=== PATIENT | female | born 1995 | race Caucasian/White ===

== ENCOUNTER 2016-05-22 03:28 | Emergency (ER) | payer OTHER ==
--- NOTE | 2016-05-22 03:49 | ERPHSYRPT ---
- History of Present Illness Time Seen by Provider: 05/22/16 03:33 Source: patient Exam Limitations: no limitations Physician History: FOR THE PAST 3 DAYS PT HAS HAD BILATERAL FLANK/LOWER ABDOMINAL PAIN, DYSURIA AND INCREASED URINARY FREQUENCY; FOR THE PAST 2 DAYS NAUSEA, VOMITING X4 WITHOUT BLOOD AND FEVER UP TO 101.8 DEGREES. LAST BM WAS 2 DAYS AGO AND PASTY [facility]. LMP ~ 2 WEEKS AGO. Allergies/Adverse Reactions: No Known Drug Allergies Allergy (Verified 01/01/16 10:34) Home Medications: Alprazolam 1 mg [Xanax 1 mg] 1 mg PO Q8HPRN PRN 11/17/15 [History] Oxycodone HCl/Acetaminophen [Percocet 10-325 mg Tablet] 1 each PO Q4-6HPRN PRN 01/01/16 [History] Cyclobenzaprine HCl [Flexeril] 10 mg PO TID 05/22/16 [History] Venlafaxine HCl ER 75 mg [Effexor XR 75 MG] 75 mg PO DAILY 05/22/16 [ History] Hx Tetanus, Diphtheria Vaccination/Date Given: Yes (up to date) Hx Influenza Vaccination/Date Given: No Hx Pneumococcal Vaccination/Date Given: No - Review of Systems Constitutional: Fever Cardiac: No Chest Pain Abdominal/Gastrointestinal: Abdominal Pain, Nausea, Vomiting, Other (BILATERAL FLANK PAIN) Genitourinary Symptoms: Dysuria, Frequency All Other Systems: Reviewed and Negative - Past Medical History Pertinent Past Medical History: Yes Neurological History: No Pertinent History ENT History: No Pertinent History Cardiac History: No Pertinent History Respiratory History: No Pertinent History Endocrine Medical History: No Pertinent History Musculoskeletal History: No Pertinent History GI Medical History: No Pertinent History History: Other (H/O pyelonephritis and right nephrolithiasis) Psycho-Social History: Anxiety Female Reproductive Disorders: No Pertinent History Other Medical History: chronic pain - Past Surgical History Past Surgical History: Yes Neuro Surgical History: No Pertinent History Cardiac: No Pertinent History Respiratory: No Pertinent History Gastrointestinal: No Pertinent History Genitourinary: No Pertinent History Musculoskeletal: Orthopedic Surgery Female Surgical History: Section Other Surgical History: LEFT WRIST SURGERY - Social History Smoking Status: Current every day smoker How long have you smoked: 6 Exposure to second hand smoke: Yes Drug Use: none Patient Lives Alone: No Significant Family History: heart disease - Female History Hx Now: No - Nursing Vital Signs Nursing Vital Signs: Initial Vital Signs Temperature 98.0 F Temperature Source Oral Pulse Rate 115 Respiratory Rate 20 Blood Pressure [Left Arm] 111/59 Pain Intensity 6 - Physical Exam General Appearance: alert Eye Exam: PERRL/EOMI Ears, Nose, Throat Exam: TMs normal, pharynx normal Neck Exam: normal inspection Respiratory Exam: lungs clear Cardiovascular Exam: tachycardia Gastrointestinal/Abdomen Exam: soft, normal bowel sounds Back Exam: normal range of motion Extremity Exam: normal inspection, No pedal edema Neurologic Exam: alert, cooperative Skin Exam: warm, dry SpO2 Interpretation: normal SpO2: 97 Oxygen Delivery: Room Air - Course Nursing assessment & vital signs reviewed: Yes Ordered Tests: Active Orders 24 hr Category Date Time Status AMYLASE Stat Lab 05/22/16 03:56 Completed CBC W DIFF Stat Lab 05/22/16 03:56 Completed CMP Stat Lab 05/22/16 03:56 Completed CULTURE,URINE Stat Lab 05/22/16 04:00 Received HCG QUALITATIVE,SERUM Stat Lab 05/22/16 03:56 Completed LIPASE Stat Lab 05/22/16 03:56 Completed MAGNESIUM Stat Lab 05/22/16 03:56 Completed UA W/ MICROSCOPIC Stat Lab 05/22/16 03:56 Completed Medication Summary Generic Name Dose Route Start Last Admin Trade Name Freq PRN Reason Stop Dose Admin Hydromorphone HCl 1 mg 05/22/16 05:43 Dilaudid 1 Mg/Ml Injection IV 05/22/16 05:44 STAT ONE Ceftriaxone Sodium/Dextrose 50 mls @ 100 mls/hr 05/22/16 05:27 05/22/16 05:34 Rocephin 1 Gm-D5w 50 Ml Bag IV 05/22/16 05:56 100 mls/hr STAT ONE Administration Magnesium Oxide 400 mg 05/22/16 10:00 05/22/16 05:35 Mag-Ox 400 PO 06/21/16 09:59 400 mg BID ISMAEL Administration Potassium Chloride 40 meq 05/22/16 10:00 05/22/16 05:35 Potassium Chl 40 Meq/30 Ml Oral Solution PO 06/21/16 09:59 40 meq DAILY ISMAEL Administration Discontinued Medications Generic Name Dose Route Start Last Admin Trade Name Freq PRN Reason Stop Dose Admin Sodium Chloride 1,000 mls @ 999 mls/hr 05/22/16 03:51 05/22/16 03:57 Sodium Chloride 0.9% 1000 Ml IV 05/22/16 04:51 999 mls/hr .Q1H1M STA Administration Sodium Chloride Confirm 05/22/16 03:57 Sodium Chloride 0.9% 1000 Ml Administered 05/22/16 03:58 Dose 1,000 mls @ ud .ROUTE .STK-MED ONE Ceftriaxone Sodium/Dextrose Confirm 05/22/16 05:31 Rocephin 1 Gm-D5w 50 Ml Bag Administered 05/22/16 05:32 Dose 50 mls @ ud IV .STK-MED ONE Ketorolac Tromethamine 30 mg 05/22/16 04:32 05/22/16 04:47 Toradol 30 Mg Injection IV 05/22/16 04:33 30 mg STAT ONE Administration Ketorolac Tromethamine Confirm 05/22/16 04:44 Toradol 30 Mg Injection Administered 05/22/16 04:45 Dose 30 mg .ROUTE .STK-MED ONE Magnesium Oxide Confirm 05/22/16 05:31 Mag-Ox 400 Administered 05/22/16 05:32 Dose 400 mg .ROUTE .STK-MED ONE Ondansetron HCl 4 mg 05/22/16 04:33 05/22/16 04:47 Zofran Odt 4 Mg PO 05/22/16 04:34 4 mg STAT ONE Administration Ondansetron HCl Confirm 05/22/16 04:44 Zofran Odt 4 Mg Administered 05/22/16 04:45 Dose 4 mg .ROUTE .STK-MED ONE Ondansetron HCl Confirm 05/22/16 04:51 Zofran Odt 4 Mg Administered 05/22/16 04:52 Dose 4 mg .ROUTE .STK-MED ONE Potassium Chloride Confirm 05/22/16 05:32 Potassium Chl 40 Meq/30 Ml Oral Solution Administered 05/22/16 05:33 Dose 40 meq .ROUTE .STK-MED ONE Lab/Rad Data: Laboratory Result Diagrams 05/22/16 03:56 05/22/16 03:56 Laboratory Results 05/22/16 05/22/16 05/22/16 Range/Units 03:56 03:56 03:56 WBC 14.1 H (4.0-10.5) K/mm3 RBC 4.51 (4.1-5.4) M/mm3 Hgb 11.9 L (12.0-16.0) gm/dl Hct 37.1 (35-47) % MCV 82.3 (78-100) fl MCH 26.3 (26-32) pg MCHC 32.1 (32-36) g/dl RDW 14.5 H (11.5-14.0) % Plt Count 243 (150-450) K/mm3 MPV 10.6 H (6-9.5) fl Gran % 75.4 H (36.0-66.0) % Lymphocytes % 17.5 L (24.0-44.0) % Monocytes % 6.5 (0.0-12.0) % Eosinophils % 0.4 (0.00-5.0) % Basophils % 0.2 (0.0-0.4) % Basophils # 0.03 (0-0.4) Sodium 132 L (136-145) mEq/L Potassium 3.2 L (3.5-5.1) mEq/L Chloride 97 L (98-107) mEq/L Carbon Dioxide 22.3 (21-32) mEq/L Anion Gap 16.1 H (5-15) MEQ/L BUN 12 (9-20) mg/dL Creatinine 1.03 (0.55-1.30) mg/dl Estimated GFR > 60 ML/MIN Glucose 92 (70-110) MG/DL Calcium 8.7 (8.5-10.1) mg/dL Magnesium 1.5 L (1.8-2.4) mg/dL Total Bilirubin 0.4 (0.2-1.0) mg/dL AST 13 L (15-37) U/L ALT 13 (12-78) U/L Alkaline Phosphatase 105 (46-116) U/L Serum Total Protein 8.3 H (6.4-8.2) gm/dL Albumin 3.9 (3.4-5.0) g/dL Amylase 43 (25-115) U/L Lipase 65 L (73-393) U/L Serum , Qual NEGATIVE (Negative) Ur Collection Type Urine Color (YELLOW) Urine Appearance (CLEAR) Urine pH (5-6) Ur Specific [place] (1.005-1.025) Urine Protein (Negative) Urine Glucose (UA) (NEGATIVE) mg/dL Urine Ketones (NEGATIVE) Urine Nitrite (NEGATIVE) Urine Bilirubin (NEGATIVE) Urine Urobilinogen (0-1) mg/dL Urine WBC (Auto) (NEGATIVE) Urine RBC (Auto) (0-5) Ash/ul Urine Microscopic RBC (0-2) /HPF Urine Microscopic WBC (0-5) /HPF Ur Epithelial Cells (FEW) /HPF Urine Bacteria (NEGATIVE) /HPF Urine Mucus (NEGATIVE) /HPF Urine Yeast (NEGATIVE) /HPF Specimen Received 05/22/16 Range/Units 03:56 WBC (4.0-10.5) K/mm3 RBC (4.1-5.4) M/mm3 Hgb (12.0-16.0) gm/dl Hct (35-47) % MCV (78-100) fl MCH (26-32) pg MCHC (32-36) g/dl RDW (11.5-14.0) % Plt Count (150-450) K/mm3 MPV (6-9.5) fl Gran % (36.0-66.0) % Lymphocytes % (24.0-44.0) % Monocytes % (0.0-12.0) % Eosinophils % (0.00-5.0) % Basophils % (0.0-0.4) % Basophils # (0-0.4) Sodium (136-145) mEq/L Potassium (3.5-5.1) mEq/L Chloride (98-107) mEq/L Carbon Dioxide (21-32) mEq/L Anion Gap (5-15) MEQ/L BUN (9-20) mg/dL Creatinine (0.55-1.30) mg/dl Estimated GFR ML/MIN Glucose (70-110) MG/DL Calcium (8.5-10.1) mg/dL Magnesium (1.8-2.4) mg/dL Total Bilirubin (0.2-1.0) mg/dL AST (15-37) U/L ALT (12-78) U/L Alkaline Phosphatase (46-116) U/L Serum Total Protein (6.4-8.2) gm/dL Albumin (3.4-5.0) g/dL Amylase (25-115) U/L Lipase (73-393) U/L Serum , Qual (Negative) Ur Collection Type CLEAN CATCH Urine Color YELLOW (YELLOW) Urine Appearance SLIGHTLY CLOUDY (CLEAR) Urine pH 5.5 (5-6) Ur Specific [place] 1.025 (1.005-1.025) Urine Protein 30 (Negative) Urine Glucose (UA) NEGATIVE (NEGATIVE) mg/dL Urine Ketones NEGATIVE (NEGATIVE) Urine Nitrite NEGATIVE (NEGATIVE) Urine Bilirubin NEGATIVE (NEGATIVE) Urine Urobilinogen 1 (0-1) mg/dL Urine WBC (Auto) NEGATIVE (NEGATIVE) Urine RBC (Auto) MODERATE (0-5) Ash/ul Urine Microscopic RBC 10-15 (0-2) /HPF Urine Microscopic WBC 2-5 (0-5) /HPF Ur Epithelial Cells MODERATE (FEW) /HPF Urine Bacteria MODERATE (NEGATIVE) /HPF Urine Mucus MANY (NEGATIVE) /HPF Urine Yeast MANY (NEGATIVE) /HPF Specimen Received 05/22/16 0400 - Departure Time of Disposition: 05:48 Departure Disposition: Home Clinical Impression: UTI, VOMITING, HYPOKALEMIA, HYPOMAGNESEMIA Condition: Fair Critical Care Time: No Instructions: Urinary Tract Infection (UTI), Vomiting -- Adult Additional Instructions: FOLLOW UP WITH PRIVATE DOCTOR TOMORROW. Prescriptions: Phenazopyridine HCl 200 mg [Pyridium 200 mg] 200 mg PO TID #7 tablet Sulfamethoxazole/Trimethoprim [Bactrim Ds Tablet] 1 each PO BID #20 tablet
[2016-05-22] MEDS ORDERED: Sodium Chloride 0.9% 1000 ML 1,000 ML IV STA (03:51)
[2016-05-22] MEDS ORDERED: Sodium Chloride 0.9% 1000 ML 1,000 ML ONE (03:57)
[2016-05-22 04:02] LABS: BASOPHIL % 0.2 % (0.0-0.4); Eosinophil % 0.4 % (0.00-5.0); Granulocytes % 75.4 % (36.0-66.0); Lymphocytes % 17.5 % (24.0-44.0); Mean Cell Volume 82.3 fl (78-100); Mean Platelet Volume 10.6 fl (6-9.5); Monocytes % 6.5 % (0.0-12.0); Platelet Count 243 K/mm3 (150-450); Red Blood Count 4.51 M/mm3 (4.1-5.4); Red Cell Distribution Width 14.5 % (11.5-14.0); White Blood Count 14.1 K/mm3 (4.0-10.5)
[2016-05-22 04:03] LABS: Mean Corpuscular Hemoglobin 26.3 pg (26-32)
[2016-05-22 04:15] LABS: Collection Type CLEAN CATCH
[2016-05-22 04:16] LABS: Bacteria MODERATE /HPF (NEGATIVE); COMPLETE URINE MICROSCOPIC? YES; Epithelial Cells MODERATE /HPF (FEW); Mucus MANY /HPF (NEGATIVE); Ph 5.5 (5-6); Yeast MANY /HPF (NEGATIVE)
[2016-05-22 04:27] LABS: ALBUMIN 3.9 g/dL (3.4-5.0); ALKALINE PHOSPHATASE 105 U/L (46-116); ANION GAP 16.1 MEQ/L (5-15); BILIRUBIN,TOTAL 0.4 mg/dL (0.2-1.0); BLOOD UREA NITROGEN 12 mg/dL (9-20); CHLORIDE 97 mEq/L (98-107); Carbon Dioxide 22.3 mEq/L (21-32); Glucose 92 MG/DL (70-110); LIPASE 65 U/L (73-393); MAGNESIUM 1.5 mg/dL (1.8-2.4); Potassium 3.2 mEq/L (3.5-5.1); SGOT/AST 13 U/L (15-37); SGPT/ALT 13 U/L (12-78); SODIUM 132 mEq/L (136-145); Total Protein 8.3 gm/dL (6.4-8.2)
[2016-05-22] MEDS ORDERED: TORAdol 30 mg Injection IV ONE (04:32)
[2016-05-22] MEDS ORDERED: ZOFRAN ODT 4 MG PO ONE (04:33)
[2016-05-22] MEDS ORDERED: ZOFRAN ODT 4 MG ONE ×2 (04:44→04:51)
[2016-05-22] MEDS ORDERED: TORAdol 30 mg Injection ONE (04:44)
[2016-05-22] MEDS ORDERED: ROCEPHIN 1 Gm-D5w 50 ml Bag** 50 ML IV ONE ×2 (05:27→05:31)
[2016-05-22] MEDS ORDERED: MAG-OX 400 ONE (05:31)
[2016-05-22] MEDS ORDERED: POTASSIUM CHL 40 MEQ/30 ML ORAL SOLUTION ONE (05:32)
[2016-05-22] MEDS ORDERED: Hydromorphone 1 mg/ml Ampule IV ONE (05:43)
[2016-05-22] MEDS ORDERED: Phenergan 25 MG INJ IV ONE (05:43)
[2016-05-22] MEDS ORDERED: Hydromorphone 1 mg/ml Ampule ONE (05:49)
[2016-05-22] MEDS ORDERED: Phenergan 25 MG INJ ONE (05:49)
[2016-05-22 06:28] VITALS: BP 116/64; PULSE 102; O2SAT 99
[2016-05-22] MEDS ORDERED: POTASSIUM CHL 40 MEQ/30 ML ORAL SOLUTION PO SCH (10:00)
[2016-05-22] MEDS ORDERED: MAG-OX 400 PO SCH (10:00)
== END 2016-05-22 06:15 | disposition home or self-care (01) ==
LOC: ED 03:28
DX: N39.0 Urinary tract infection, site not specified (principal); R11.2 Nausea with vomiting, unspecified; E87.6 Hypokalemia; E83.42 Hypomagnesemia; R10.30 Lower abdominal pain, unspecified; R10.9 Unspecified abdominal pain
CPT/HCPCS: 36000; 36415; 80053; 81000; 82150; 83690; 83735; 84703; 85025; 87086; 96360; 96365; 96368; 96374; 96375; 99283; J0696; J1170; J1885; J2550; Q0162

== ENCOUNTER 2016-07-23 18:39 | Emergency (ER) | payer OTHER ==
[2016-07-23] MEDS ORDERED: Phenergan 25 MG INJ IV ONE (19:56)
[2016-07-23] MEDS ORDERED: Sodium Chloride 0.9% 1000 ML 1,000 ML IV STA (19:56)
[2016-07-23] MEDS ORDERED: Hydromorphone 1 mg/ml Ampule IV ONE (19:56)
--- NOTE | 2016-07-23 20:03 | ERPHSYRPT ---
- History of Present Illness Time Seen by Provider: 07/23/16 19:50 Historian: patient Exam Limitations: no limitations Patient Subjective Stated Complaint: RLQ abd pain x 2-3 days - radiating into the back - fever - dysuria - nausea Triage Nursing Assessment: ambulatory to treatment area - steady gait - moves all extremities with equal strength. alert/oriented - hystrionic affect/ tearful. resps easy - shallow per pain. skin flushed/hot/dry - no rash/injury Physician History: FOR THE PAST 3 DAYS PT HAS HAD RIGHT SIDED ABDOMINAL PAIN AND RIGHT LOWER BACK PAIN WITH DYSURIA AND URINARY URGENCY; FOR THE PAST 2 DAYS FEVER UP TO 102 DEGREES; TODAY NAUSEA AND VOMITING X4. LMP WAS LAST WEEK & WNL. Allergies/Adverse Reactions: No Known Drug Allergies Allergy (Verified 01/01/16 10:34) Home Medications: Alprazolam 1 mg [Xanax 1 mg] 1 mg PO Q8HPRN PRN 11/17/15 [History] Oxycodone HCl/Acetaminophen [Percocet 10-325 mg Tablet] 1 each PO Q4-6HPRN PRN 01/01/16 [History] Cyclobenzaprine HCl [Flexeril] 10 mg PO TID 05/22/16 [History] Venlafaxine HCl ER 75 mg [Effexor XR 75 MG] 75 mg PO DAILY 05/22/16 [ History] Hx Tetanus, Diphtheria Vaccination/Date Given: Yes Hx Influenza Vaccination/Date Given: No Hx Pneumococcal Vaccination/Date Given: No Immunizations Up to Date: Yes - Review of Systems Constitutional: Fever Respiratory: No Dyspnea Cardiac: No Chest Pain Abdominal/Gastrointestinal: Abdominal Pain, Nausea, Vomiting Genitourinary Symptoms: Dysuria, Urgency Musculoskeletal: Back Pain (RIGHT LOWER BACK PAIN) All Other Systems: Reviewed and Negative - Past Medical History Pertinent Past Medical History: Yes Neurological History: No Pertinent History ENT History: No Pertinent History Cardiac History: No Pertinent History Respiratory History: No Pertinent History Endocrine Medical History: No Pertinent History Musculoskeletal History: No Pertinent History GI Medical History: No Pertinent History History: Other Psycho-Social History: Anxiety Female Reproductive Disorders: No Pertinent History Other Medical History: chronic pain - Past Surgical History Past Surgical History: Yes Neuro Surgical History: No Pertinent History Cardiac: No Pertinent History Respiratory: No Pertinent History Gastrointestinal: No Pertinent History Genitourinary: No Pertinent History Musculoskeletal: Orthopedic Surgery Female Surgical History: Section Other Surgical History: LEFT WRIST SURGERY - Social History Smoking Status: Current every day smoker How long have you smoked: 6 Exposure to second hand smoke: No Drug Use: none Patient Lives Alone: No Significant Family History: heart disease - Female History Hx Last Menstrual Period: 1 week Hx Now: No - Nursing Vital Signs Nursing Vital Signs: Initial Vital Signs Temperature 98.6 F Temperature Source Oral Pulse Rate 88 Respiratory Rate 16 Blood Pressure [Right Arm] 100/49 Pain Intensity 0 - Physical Exam General Appearance: mild distress, alert Eye Exam: PERRL/EOMI Ears, Nose, Throat Exam: pharynx normal, moist mucous membranes Neck Exam: normal inspection Respiratory Exam: lungs clear Cardiovascular Exam: normal heart sounds Gastrointestinal/Abdomen Exam: soft, normal bowel sounds, tenderness (MILD RIGHT SIDED TENDERNESS AND SUPRAPUBIC TENDERNESS), No guarding Back Exam: normal range of motion Extremity Exam: normal inspection, No pedal edema Neurologic Exam: alert, cooperative Skin Exam: warm, dry SpO2 Interpretation: normal SpO2: 98 Oxygen Delivery: Room Air - Course Nursing assessment & vital signs reviewed: Yes - CT Exams Abdomen/Pelvis CT Interpretation: Discussed w/radiologist (NORMAL APPY; MILD SCATTERED FECAL STASIS WITHOUT OBSTRUCTION; NEW NON-OBSTRUCTING LEFT RENAL PUNCTATE CALCULI; NEW 3 CM LEFT OVARIAN CYST; REMAINING ABD/PEL NEGATIVE.) Ordered Tests: Active Orders 24 hr Category Date Time Status IV Insertion STAT Care 07/23/16 19:56 Active ABDOMEN AND PELVIS W/0 CONTRAS [CT] Stat Exams 07/23/16 19:57 Taken AMYLASE Stat Lab 07/23/16 20:18 Completed CBC W DIFF Stat Lab 07/23/16 20:18 Completed CMP Stat Lab 07/23/16 20:18 Completed HCG QUALITATIVE,SERUM Stat Lab 07/23/16 20:18 Completed LIPASE Stat Lab 07/23/16 20:18 Completed MAGNESIUM Stat Lab 07/23/16 20:18 Completed UA Stat Lab 07/23/16 20:15 Completed Medication Summary Discontinued Medications Generic Name Dose Route Start Last Admin Trade Name Freq PRN Reason Stop Dose Admin Hydromorphone HCl 1 mg 07/23/16 19:56 07/23/16 20:25 Hydromorphone 1 Mg/Ml Ampule IV 07/23/16 19:57 1 mg STAT ONE Administration Hydromorphone HCl Confirm 07/23/16 20:23 Hydromorphone 1 Mg/Ml Ampule Administered 07/23/16 20:24 Dose 1 mg .ROUTE .STK-MED ONE Sodium Chloride 1,000 mls @ 999 mls/hr 07/23/16 19:56 07/23/16 20:24 Sodium Chloride 0.9% 1000 Ml IV 07/23/16 20:56 999 mls/hr .Q1H1M STA Administration Sodium Chloride Confirm 07/23/16 20:23 Sodium Chloride 0.9% 1000 Ml Administered 07/23/16 20:24 Dose 1,000 mls @ ud .ROUTE .STK-MED ONE Promethazine HCl 12.5 mg 07/23/16 19:56 07/23/16 20:24 Phenergan 25 Mg Inj IV 07/23/16 19:57 12.5 mg STAT ONE Administration Promethazine HCl Confirm 07/23/16 20:22 Phenergan 25 Mg Inj Administered 07/23/16 20:23 Dose 25 mg .ROUTE .STK-MED ONE Lab/Rad Data: Laboratory Result Diagrams 07/23/16 20:18 07/23/16 20:18 Laboratory Results 07/23/16 07/23/16 07/23/16 Range/Units 20:18 20:18 20:18 WBC 10.4 (4.0-10.5) K/mm3 RBC 4.62 (4.1-5.4) M/mm3 Hgb 12.4 (12.0-16.0) gm/dl Hct 39.5 (35-47) % MCV 85.5 (78-100) fl MCH 26.8 (26-32) pg MCHC 31.4 L (32-36) g/dl RDW 14.8 H (11.5-14.0) % Plt Count 336 (150-450) K/mm3 MPV 9.4 (6-9.5) fl Gran % 52.6 (36.0-66.0) % Lymphocytes % 35.6 (24.0-44.0) % Monocytes % 6.2 (0.0-12.0) % Eosinophils % 5.0 (0.00-5.0) % Basophils % 0.6 (0.0-0.4) % Basophils # 0.06 (0-0.4) Sodium 144 (136-145) mEq/L Potassium 3.6 (3.5-5.1) mEq/L Chloride 104 (98-107) mEq/L Carbon Dioxide 28.3 (21-32) mEq/L Anion Gap 15.2 H (5-15) MEQ/L BUN 7 L (9-20) mg/dL Creatinine 0.91 (0.55-1.30) mg/dl Estimated GFR > 60 ML/MIN Glucose 80 (70-110) MG/DL Calcium 9.1 (8.5-10.1) mg/dL Magnesium 1.8 (1.8-2.4) mg/dL Total Bilirubin 0.3 (0.2-1.0) mg/dL AST 18 (15-37) U/L ALT 17 (12-78) U/L Alkaline Phosphatase 96 (46-116) U/L Serum Total Protein 8.2 (6.4-8.2) gm/dL Albumin 4.0 (3.4-5.0) g/dL Amylase 52 (25-115) U/L Lipase 104 (73-393) U/L Serum , Qual NEGATIVE (Negative) Ur Collection Type Urine Color (YELLOW) Urine Appearance (CLEAR) Urine pH (5-6) Ur Specific [place] (1.005-1.025) Urine Protein (Negative) Urine Glucose (UA) (NEGATIVE) mg/dL Urine Ketones (NEGATIVE) Urine Nitrite (NEGATIVE) Urine Bilirubin (NEGATIVE) Urine Urobilinogen (0-1) mg/dL Urine WBC (Auto) (NEGATIVE) Urine RBC (Auto) (0-5) Ash/ul Specimen Received 07/23/16 Range/Units 20:15 WBC (4.0-10.5) K/mm3 RBC (4.1-5.4) M/mm3 Hgb (12.0-16.0) gm/dl Hct (35-47) % MCV (78-100) fl MCH (26-32) pg MCHC (32-36) g/dl RDW (11.5-14.0) % Plt Count (150-450) K/mm3 MPV (6-9.5) fl Gran % (36.0-66.0) % Lymphocytes % (24.0-44.0) % Monocytes % (0.0-12.0) % Eosinophils % (0.00-5.0) % Basophils % (0.0-0.4) % Basophils # (0-0.4) Sodium (136-145) mEq/L Potassium (3.5-5.1) mEq/L Chloride (98-107) mEq/L Carbon Dioxide (21-32) mEq/L Anion Gap (5-15) MEQ/L BUN (9-20) mg/dL Creatinine (0.55-1.30) mg/dl Estimated GFR ML/MIN Glucose (70-110) MG/DL Calcium (8.5-10.1) mg/dL Magnesium (1.8-2.4) mg/dL Total Bilirubin (0.2-1.0) mg/dL AST (15-37) U/L ALT (12-78) U/L Alkaline Phosphatase (46-116) U/L Serum Total Protein (6.4-8.2) gm/dL Albumin (3.4-5.0) g/dL Amylase (25-115) U/L Lipase (73-393) U/L Serum , Qual (Negative) Ur Collection Type CLEAN CATCH Urine Color YELLOW (YELLOW) Urine Appearance CLEAR (CLEAR) Urine pH 6.0 (5-6) Ur Specific [place] 1.015 (1.005-1.025) Urine Protein NEGATIVE (Negative) Urine Glucose (UA) NEGATIVE (NEGATIVE) mg/dL Urine Ketones NEGATIVE (NEGATIVE) Urine Nitrite NEGATIVE (NEGATIVE) Urine Bilirubin NEGATIVE (NEGATIVE) Urine Urobilinogen 0.2 (0-1) mg/dL Urine WBC (Auto) NEGATIVE (NEGATIVE) Urine RBC (Auto) NEGATIVE (0-5) Ash/ul Specimen Received 07/23/16:2009 - Departure Time of Disposition: 21:55 Departure Disposition: Home Clinical Impression: ABDOMINAL PAIN Condition: Fair Critical Care Time: No Instructions: Abdominal Pain-Adult Additional Instructions: FOLLOW UP WITH PRIVATE DOCTOR TOMORROW.
[2016-07-23] MEDS ORDERED: Phenergan 25 MG INJ ONE (20:22)
[2016-07-23] MEDS ORDERED: Sodium Chloride 0.9% 1000 ML 1,000 ML ONE (20:23)
[2016-07-23] MEDS ORDERED: Hydromorphone 1 mg/ml Ampule ONE (20:23)
[2016-07-23 20:24] LABS: BASOPHIL % 0.6 % (0.0-0.4); Granulocytes % 52.6 % (36.0-66.0); Lymphocytes % 35.6 % (24.0-44.0); Mean Cell Volume 85.5 fl (78-100); Mean Corpuscular Hemoglobin 26.8 pg (26-32); Mean Platelet Volume 9.4 fl (6-9.5); Monocytes % 6.2 % (0.0-12.0); Platelet Count 336 K/mm3 (150-450); Red Blood Count 4.62 M/mm3 (4.1-5.4); Red Cell Distribution Width 14.8 % (11.5-14.0); White Blood Count 10.4 K/mm3 (4.0-10.5)
[2016-07-23 20:30] LABS: COMPLETE URINE MICROSCOPIC? NO; Collection Type CLEAN CATCH
[2016-07-23 20:47] LABS: ALKALINE PHOSPHATASE 96 U/L (46-116); ANION GAP 15.2 MEQ/L (5-15); BILIRUBIN,TOTAL 0.3 mg/dL (0.2-1.0); BLOOD UREA NITROGEN 7 mg/dL (9-20); CHLORIDE 104 mEq/L (98-107); Carbon Dioxide 28.3 mEq/L (21-32); Glucose 80 MG/DL (70-110); LIPASE 104 U/L (73-393); MAGNESIUM 1.8 mg/dL (1.8-2.4); Potassium 3.6 mEq/L (3.5-5.1); SGOT/AST 18 U/L (15-37); SGPT/ALT 17 U/L (12-78); SODIUM 144 mEq/L (136-145); Total Protein 8.2 gm/dL (6.4-8.2)
[2016-07-23] MEDS ORDERED: TORAdol 30 mg Injection IV ONE (21:55)
[2016-07-23] MEDS ORDERED: TORAdol 30 mg Injection ONE (21:58)
[2016-07-23 22:27] VITALS: BP 130/86; PULSE 70; O2SAT 99
--- NOTE | 2016-07-24 09:03 | XRAY ---
Indication: Right lower quadrant pain for 3 days. Multiple contiguous images obtained through the abdomen and pelvis without contrast as ordered. Comparison: January 01, 2016. Lung bases demonstrates minimal bibasilar dependent atelectasis. No infiltrate, consolidation, or effusion. Heart is not enlarged. Noncontrasted stomach and bowel loops appear nonobstructed. There is mild diffuse scattered colonic fecal debris throughout. Normal appendix. New nonobstructing left renal punctate calculus and new 3 cm left ovary cyst. No free fluid/air. Uterus is incidentally prominent with thickened endometrial stripe presumably related to menses. Remaining liver, gallbladder, pancreas, spleen, adrenal glands, kidneys, ureters, bladder, uterus, and aorta appear unremarkable for noncontrast exam. Osseous structures intact. Impression: 1. Fecal stasis without obstruction. 2. New nonobstructing punctate left renal calculus. 3. New 3 cm left ovary cyst. Also prominent uterus with endometrial thickening presumes related to menses. Correlate clinically. Pelvic sonogram may yield further information if there remains further clinical concern. CT DI 17.79
== END 2016-07-23 22:27 | disposition home or self-care (01) ==
LOC: ED 18:39
DX: R10.9 Unspecified abdominal pain (principal); M54.5 Low back pain; R50.9 Fever, unspecified; R30.0 Dysuria; R11.2 Nausea with vomiting, unspecified
CPT/HCPCS: 36000; 36415; 74176; 80053; 81002; 82150; 83690; 83735; 84703; 85025; 96360; 96374; 96375; 99284; J1170; J1885; J2550

== ENCOUNTER 2017-01-30 19:35 | Emergency (ER) | payer OTHER ==
[2017-01-30] MEDS ORDERED: Sodium Chloride 0.9% 1000 ML 1,000 ML IV STA (20:10)
[2017-01-30] MEDS ORDERED: TORAdol 30 mg Injection IV ONE (20:10)
[2017-01-30] MEDS ORDERED: Zofran 4 MG/2 ML VIAL IV ONE (20:10)
--- NOTE | 2017-01-30 20:10 | ERPHSYRPT ---
- History of Present Illness Time Seen by Provider: 01/30/17 20:10 Historian: patient Exam Limitations: no limitations Patient Subjective Stated Complaint: Pt states "For the past few days I have been running a fever and had horrible right side pain. I have had this several times and it is always a kidney infection and it is always on the right, I do not know what to do." Triage Nursing Assessment: Pt alert and oriented X 3, skin pwd. Pt ambulates with an upright steady gait, able to speak in full clear sentencs. pt in no apparent respiratory distress. Pt is holding her right side. Physician History: The patient is a 21-year-old female with her boyfriend complaining of right flank and bladder pain for 4 days. She had a fever of 102 last night. The pain has increased today. She finds it difficult to urinate because of pain with urination. She has been vomiting today. Her past medical history is significant for kidney stones and pyelonephritis. Timing/Duration: day(s) (4) Activities at Onset: none Quality: aching Abdominal Pain Onset Location: suprapubic, flank ( he) Pain Radiation: no radiation Severity of Pain-Max: moderate Severity of Pain-Current: moderate Modifying Factors: Improves With: nothing Associated Symptoms: nausea, vomiting Previous symptoms: same symptoms as today Allergies/Adverse Reactions: No Known Drug Allergies Allergy (Verified 01/01/16 10:34) Hx Tetanus, Diphtheria Vaccination/Date Given: No Hx Influenza Vaccination/Date Given: No Hx Pneumococcal Vaccination/Date Given: No Immunizations Up to Date: Yes - Review of Systems Constitutional: Fever Eyes: No Symptoms Ears, Nose, & Throat: No Symptoms Respiratory: No Cough, No Dyspnea Cardiac: No Chest Pain, No Edema, No Syncope Abdominal/Gastrointestinal: Nausea, Vomiting Genitourinary Symptoms: Dysuria, Flank Pain Musculoskeletal: No Back Pain, No Neck Pain Skin: No Rash Neurological: No Dizziness, No Focal Weakness, No Sensory Changes Psychological: No Symptoms Endocrine: No Symptoms Hematologic/Lymphatic: No Symptoms Immunological/Allergic: No Symptoms All Other Systems: Reviewed and Negative - Past Medical History Pertinent Past Medical History: Yes Neurological History: No Pertinent History ENT History: No Pertinent History Cardiac History: No Pertinent History Respiratory History: No Pertinent History Endocrine Medical History: No Pertinent History Musculoskeletal History: No Pertinent History GI Medical History: No Pertinent History History: Other Psycho-Social History: Anxiety Female Reproductive Disorders: No Pertinent History Other Medical History: chronic pain - Past Surgical History Past Surgical History: Yes Neuro Surgical History: No Pertinent History Cardiac: No Pertinent History Respiratory: No Pertinent History Gastrointestinal: No Pertinent History Genitourinary: No Pertinent History Musculoskeletal: Orthopedic Surgery Female Surgical History: Section Other Surgical History: LEFT WRIST SURGERY - Social History Smoking Status: Current every day smoker How long have you smoked: 5 years Exposure to second hand smoke: Yes Drug Use: none Patient Lives Alone: No Significant Family History: heart disease - Female History Hx Last Menstrual Period: 01/06/2017 Hx Now: No - Nursing Vital Signs Nursing Vital Signs: Initial Vital Signs Temperature 99.2 F 01/30/17 19:42 Pulse Rate 104 H 01/30/17 19:42 Respiratory Rate 18 01/30/17 19:42 Blood Pressure 138/80 01/30/17 19:42 O2 Sat by Pulse Oximetry 99 01/30/17 19:42 Pain Scale Pain Intensity 3 - Physical Exam General Appearance: mild distress, alert, anxiety Eye Exam: PERRL/EOMI, eyes nml inspection Ears, Nose, Throat Exam: normal ENT inspection, pharynx normal, moist mucous membranes Neck Exam: normal inspection, non-tender, supple, full range of motion Respiratory Exam: normal breath sounds, lungs clear, No respiratory distress Cardiovascular Exam: regular rate/rhythm, normal heart sounds Gastrointestinal/Abdomen Exam: tenderness (RUQ, suprapubic) Pelvic Exam: not done Rectal Exam: not done Back Exam: CVA tenderness (right) Extremity Exam: normal inspection, normal range of motion, pelvis stable Neurologic Exam: alert ( he), oriented x 3, cooperative, normal mood/affect, nml cerebellar function, sensation nml, No motor deficits Skin Exam: normal color, warm, dry SpO2 Interpretation: normal SpO2: 99 Oxygen Delivery: Room Air Ordered Tests: Active Orders 24 hr Category Date Time Status IV Insertion STAT Care 01/30/17 20:10 Active CBC W DIFF Stat Lab 01/30/17 20:37 Completed CMP Stat Lab 01/30/17 20:37 Completed CULTURE,URINE Stat Lab 01/30/17 19:55 Received HCG QUALITATIVE,SERUM Stat Lab 01/30/17 20:37 Completed LIPASE Stat Lab 01/30/17 20:37 Completed Lactic Acid Stat Lab 01/30/17 20:30 Completed UA W/ MICROSCOPIC Stat Lab 01/30/17 19:55 Completed Urine Triage Profile Stat Lab 01/30/17 19:55 Completed Medication Summary Discontinued Medications Generic Name Dose Route Start Last Admin Trade Name Carlos Manuel PRN Reason Stop Dose Admin Sodium Chloride 1,000 mls @ 999 mls/hr 01/30/17 20:10 01/30/17 20:37 Sodium Chloride 0.9% 1000 Ml IV 01/30/17 21:10 999 mls/hr .Q1H1M STA Administration Sodium Chloride Confirm 01/30/17 20:32 Sodium Chloride 0.9% 1000 Ml Administered 01/30/17 20:33 Dose 1,000 mls @ ud .ROUTE .STK-MED ONE Ceftriaxone Sodium/Dextrose 1 g in 50 mls @ 100 mls/hr 01/30/17 21:21 21:30 Rocephin 1 Gm-D5w 50 Ml Bag IV 01/30/17 21:50 100 mls/hr STAT STA Administration Ceftriaxone Sodium/Dextrose Confirm 01/30/17 21:25 Rocephin 1 Gm-D5w 50 Ml Bag Administered 01/30/17 21:26 Dose 1 g in 50 mls @ ud IV .STK-MED ONE Ketorolac Tromethamine 30 mg 01/30/17 20:10 01/30/17 20:37 Toradol 30 Mg Injection IV 01/30/17 20:11 30 mg STAT ONE Administration Ketorolac Tromethamine Confirm 01/30/17 20:32 Toradol 30 Mg Injection Administered 01/30/17 20:33 Dose 30 mg .ROUTE .STK-MED ONE Morphine Sulfate 2 mg 01/30/17 21:22 01/30/17 21:29 Morphine Sulfate 2 Mg Inj IV 01/30/17 21:23 2 mg STAT ONE Administration Morphine Sulfate Confirm 01/30/17 21:25 Morphine Sulfate 2 Mg Inj Administered 01/30/17 21:26 Dose 2 mg .ROUTE .STK-MED ONE Ondansetron HCl 4 mg 01/30/17 20:10 01/30/17 20:37 Zofran 4 Mg/2 Ml Vial IV 01/30/17 20:11 4 mg STAT ONE Administration Ondansetron HCl Confirm 01/30/17 20:32 Zofran 4 Mg/2 Ml Vial Administered 01/30/17 20:33 Dose 4 mg .ROUTE .STK-MED ONE Lab/Rad Data: Laboratory Result Diagrams 01/30/17 20:37 01/30/17 20:37 Laboratory Results 01/30/17 01/30/17 01/30/17 Range/Units 20:37 20:37 20:37 WBC 12.5 H (4.0-10.5) K/mm3 RBC 5.08 (4.1-5.4) M/mm3 Hgb 13.3 (12.0-16.0) gm/dl Hct 41.7 (35-47) % MCV 82.1 (78-100) fl MCH 26.2 (26-32) pg MCHC 31.9 L (32-36) g/dl RDW 14.6 H (11.5-14.0) % Plt Count 345 (150-450) K/mm3 MPV 10.3 H (6-9.5) fl Gran % 60.7 (36.0-66.0) % Lymphocytes % 31.8 (24.0-44.0) % Monocytes % 6.5 (0.0-12.0) % Eosinophils % 0.8 (0.00-5.0) % Basophils % 0.2 (0.0-0.4) % Basophils # 0.02 (0-0.4) Sodium 137 (136-145) mEq/L Potassium 3.5 (3.5-5.1) mEq/L Chloride 98 (98-107) mEq/L Carbon Dioxide 28.5 (21-32) mEq/L Anion Gap 13.8 (5-15) MEQ/L BUN 10 (9-20) mg/dL Creatinine 0.83 (0.55-1.30) mg/dl Estimated GFR > 60 ML/MIN Glucose 101 (70-110) MG/DL Lactic Acid (0.4-2.0) Calcium 9.7 (8.5-10.1) mg/dL Total Bilirubin 0.40 (0.2-1.0) mg/dL AST 15 (15-37) U/L ALT 15 (12-78) U/L Alkaline Phosphatase 95 (46-116) U/L Serum Total Protein 8.7 H (6.4-8.2) gm/dL Albumin 4.4 (3.4-5.0) g/dL Lipase 88 (73-393) U/L Serum , Qual NEGATIVE (Negative) Ur Collection Type Urine Color (YELLOW) Urine Appearance (CLEAR) Urine pH (5-6) Ur Specific [place] (1.005-1.025) Urine Protein (Negative) Urine Ketones (NEGATIVE) Urine Blood (0-5) Ash/ul Urine Nitrite (NEGATIVE) Urine Bilirubin (NEGATIVE) Urine Urobilinogen (0-1) mg/dL Ur Leukocyte Esterase (NEGATIVE) Urine Microscopic RBC (0-2) /HPF Urine Microscopic WBC (0-5) /HPF Ur Epithelial Cells (FEW) /HPF Urine Bacteria (NEGATIVE) /HPF Urine Mucus (NEGATIVE) /HPF Urine Culture Reflexed (NO) Urine Glucose (NEGATIVE) mg/dL Urine Opiates Level (NEGATIVE) Ur Methadone (NEGATIVE) Urine Barbiturates (NEGATIVE) Ur Phencyclidine (PCP) (NEGATIVE) Urine Amphetamine (NEGATIVE) U Benzodiazepine Level (NEGATIVE) Urine Cocaine (NEGATIVE) Urine Marijuana (THC) (NEGATIVE) Specimen Received 01/30/17 01/30/17 01/30/17 Range/Units 20:30 19:55 19:55 WBC (4.0-10.5) K/mm3 RBC (4.1-5.4) M/mm3 Hgb (12.0-16.0) gm/dl Hct (35-47) % MCV (78-100) fl MCH (26-32) pg MCHC (32-36) g/dl RDW (11.5-14.0) % Plt Count (150-450) K/mm3 MPV (6-9.5) fl Gran % (36.0-66.0) % Lymphocytes % (24.0-44.0) % Monocytes % (0.0-12.0) % Eosinophils % (0.00-5.0) % Basophils % (0.0-0.4) % Basophils # (0-0.4) Sodium (136-145) mEq/L Potassium (3.5-5.1) mEq/L Chloride (98-107) mEq/L Carbon Dioxide (21-32) mEq/L Anion Gap (5-15) MEQ/L BUN (9-20) mg/dL Creatinine (0.55-1.30) mg/dl Estimated GFR ML/MIN Glucose (70-110) MG/DL Lactic Acid 1.2 (0.4-2.0) Calcium (8.5-10.1) mg/dL Total Bilirubin (0.2-1.0) mg/dL AST (15-37) U/L ALT (12-78) U/L Alkaline Phosphatase (46-116) U/L Serum Total Protein (6.4-8.2) gm/dL Albumin (3.4-5.0) g/dL Lipase (73-393) U/L Serum , Qual (Negative) Ur Collection Type VOID Urine Color YELLOW (YELLOW) Urine Appearance SLIGHTLY CLOUDY (CLEAR) Urine pH 7.0 (5-6) Ur Specific [place] 1.015 (1.005-1.025) Urine Protein TRACE (Negative) Urine Ketones SMALL (NEGATIVE) Urine Blood 250 (0-5) Ash/ul Urine Nitrite NEGATIVE (NEGATIVE) Urine Bilirubin NEGATIVE (NEGATIVE) Urine Urobilinogen NORMAL (0-1) mg/dL Ur Leukocyte Esterase TRACE (NEGATIVE) Urine Microscopic RBC 10-15 (0-2) /HPF Urine Microscopic WBC 5-10 (0-5) /HPF Ur Epithelial Cells MANY (FEW) /HPF Urine Bacteria FEW (NEGATIVE) /HPF Urine Mucus MODERATE (NEGATIVE) /HPF Urine Culture Reflexed YES (NO) Urine Glucose NEGATIVE (NEGATIVE) mg/dL Urine Opiates Level POS. (NEGATIVE) Ur Methadone NEG. (NEGATIVE) Urine Barbiturates NEG. (NEGATIVE) Ur Phencyclidine (PCP) NEG. (NEGATIVE) Urine Amphetamine NEG. (NEGATIVE) U Benzodiazepine Level NEG. (NEGATIVE) Urine Cocaine NEG. (NEGATIVE) Urine Marijuana (THC) POS. (NEGATIVE) Specimen Received 01/30/17 2030 - Progress Progress: improved Counseled pt/family regarding: lab results, diagnosis, need for follow-up - Departure Time of Disposition: 21:57 Departure Disposition: Home Clinical Impression: Pyelonephritis Condition: Stable Critical Care Time: No Referrals: PALMER MUNOZ [Primary Care Provider] - Additional Instructions: You have a kidney infection. You were given Toradol 30 mg, Zofran 4 mg, morphine 2 mg, Rocephin 1 g, and fluids by IV in the ER. Take ciprofloxacin 500 mg twice a day for 10 days. Take ibuprofen and Tylenol as needed for pain and discomfort. Follow-up on Friday. Prescriptions: Ciprofloxacin HCl [Cipro] 500 mg PO BID #20 tablet
[2017-01-30] MEDS ORDERED: Sodium Chloride 0.9% 1000 ML 1,000 ML ONE (20:32)
[2017-01-30] MEDS ORDERED: Zofran 4 MG/2 ML VIAL ONE (20:32)
[2017-01-30] MEDS ORDERED: TORAdol 30 mg Injection ONE (20:32)
[2017-01-30 20:43] LABS: BASOPHIL % 0.2 % (0.0-0.4); Eosinophil % 0.8 % (0.00-5.0); Granulocytes % 60.7 % (36.0-66.0); Lymphocytes % 31.8 % (24.0-44.0); Mean Cell Volume 82.1 fl (78-100); Mean Corpuscular Hemoglobin 26.2 pg (26-32); Mean Platelet Volume 10.3 fl (6-9.5); Monocytes % 6.5 % (0.0-12.0); Platelet Count 345 K/mm3 (150-450); Red Blood Count 5.08 M/mm3 (4.1-5.4); Red Cell Distribution Width 14.6 % (11.5-14.0); White Blood Count 12.5 K/mm3 (4.0-10.5)
[2017-01-30 21:03] LABS: Collection Type VOID; Glucose NEGATIVE (NEGATIVE); Leukocyte Esterase TRACE (NEGATIVE)
[2017-01-30 21:04] LABS: ADD URINE CULTURE? YES (NO); Bacteria FEW /HPF (NEGATIVE); Bilirubin NEGATIVE (NEGATIVE); Blood 250 Ery/ul (0-5); COMPLETE URINE MICROSCOPIC? YES; Epithelial Cells MANY /HPF (FEW); Mucus MODERATE /HPF (NEGATIVE)
[2017-01-30 21:07] LABS: ALBUMIN 4.4 g/dL (3.4-5.0); ALKALINE PHOSPHATASE 95 U/L (46-116); ANION GAP 13.8 MEQ/L (5-15); BLOOD UREA NITROGEN 10 mg/dL (9-20); CHLORIDE 98 mEq/L (98-107); Carbon Dioxide 28.5 mEq/L (21-32); Glucose 101 MG/DL (70-110); LIPASE 88 U/L (73-393); Potassium 3.5 mEq/L (3.5-5.1); SGOT/AST 15 U/L (15-37); SGPT/ALT 15 U/L (12-78); SODIUM 137 mEq/L (136-145); Total Protein 8.7 gm/dL (6.4-8.2)
[2017-01-30] MEDS ORDERED: ROCEPHIN 1 Gm-D5w 50 ml Bag** 1 G/50 ML IVPB IV STA (21:21)
[2017-01-30] MEDS ORDERED: MORPHINE SULFATE 2 MG INJ IV ONE (21:22)
[2017-01-30] MEDS ORDERED: ROCEPHIN 1 Gm-D5w 50 ml Bag** 1 G/50 ML IVPB IV ONE (21:25)
[2017-01-30] MEDS ORDERED: MORPHINE SULFATE 2 MG INJ ONE (21:25)
[2017-01-30 21:48] VITALS: BP 111/71
[2017-01-30 22:05] VITALS: PULSE 94; O2SAT 100
== END 2017-01-30 22:15 | disposition home or self-care (01) ==
LOC: ED 19:35
DX: N12 Tubulo-interstitial nephritis, not specified as acute or chronic (principal); R50.9 Fever, unspecified; R11.2 Nausea with vomiting, unspecified
CPT/HCPCS: 36000; 36415; 80053; 80307; 81000; 83605; 83690; 84703; 85025; 87086; 96360; 96365; 96374; 96375; 99284; J0696; J1885; J2270; J2405

== ENCOUNTER 2017-04-30 10:37 | Emergency (ER) | payer OTHER ==
--- NOTE | 2017-04-30 11:18 | ERPHSYRPT ---
- History of Present Illness Time Seen by Provider: 04/30/17 11:05 Source: patient Exam Limitations: no limitations Patient Subjective Stated Complaint: PT HAS HEADACHES STARTED 3 DAYS AGO, VOMITING 2 DAYS AGO, FELL LAST NIGHT 2 FROM DIZZINES, PT IS 16 WEEKS , NO FEVER. Triage Nursing Assessment: PT ALERT, UNSTEADY ON FEET AT TIMES. RESP EASY, SKIN W/D PINK , PT MOANING OUT OCCASIONALY,ABD SOFT, NO CRAMPING OR VAINGAL BLEEDING Physician History: patient with left frontal/temporal throbbing headache for past 3 days. States seems that it's getting worse and has been constant. Headache is associated with photophobia, vomiting and dizziness. Patient denies any focal deficit, speech deficit or altered mental status. Patient apparently stood up last night and passed out. Apparently it was witnessed by her . Patient is a at 16 weeks into her . Patient had been vomiting but noted worse over past 2-3 days, where she has vomited 5-6 times per day. Patient also has productive cough of yellow sputum along with congestion. Patient denies any fever, chills, chest pain, abdominal pain or any urinary symptoms. Patient denies any vaginal bleeding or discharge. Patient has been taking Tylenol 650 mg for her discomfort. Timing/Duration: today Severity: moderate Modifying Factors: Improves With: nothing Associated Symptoms: nausea, vomiting, headaches, syncope, weakness, No abdominal pain, No shortness of breath, No diaphoresis, No cough, No chills, No chest pain, No fever, No loss of appetite, No malaise, No seizure, No other Allergies/Adverse Reactions: No Known Drug Allergies Allergy (Verified 04/30/17 10:57) Home Medications: Buprenorphine HCl/Naloxone HCl [Suboxone 2 mg-0.5 mg Tablet] 1 ea DAILY [History] Ranitidine HCl [Zantac] 150 mg DAILY 04/30/17 [History] Sertraline HCl 50 mg [Zoloft 50 mg Tablet] 50 mg DAILY 04/30/17 [History] Hx Tetanus, Diphtheria Vaccination/Date Given: No Hx Influenza Vaccination/Date Given: No Hx Pneumococcal Vaccination/Date Given: No Immunizations Up to Date: Yes - Review of Systems Constitutional: Fatigue, Lethargy, Weakness, No Fever, No Chills Eyes: No Symptoms Ears, Nose, & Throat: Nose Congestion Respiratory: Cough, No Dyspnea Cardiac: No Chest Pain, No Edema, No Syncope Abdominal/Gastrointestinal: No Abdominal Pain, No Nausea, No Vomiting, No Diarrhea Genitourinary Symptoms: No Dysuria Musculoskeletal: No Back Pain, No Neck Pain Skin: No Rash Neurological: Dizziness, Headache, No Focal Weakness, No Gait Changes, No Irritability, No Sensory Changes Psychological: No Symptoms Endocrine: No Symptoms All Other Systems: Reviewed and Negative - Past Medical History Pertinent Past Medical History: Yes Neurological History: No Pertinent History ENT History: No Pertinent History Cardiac History: No Pertinent History Respiratory History: No Pertinent History Endocrine Medical History: No Pertinent History Musculoskeletal History: No Pertinent History GI Medical History: No Pertinent History History: Other Psycho-Social History: Anxiety Female Reproductive Disorders: No Pertinent History Other Medical History: chronic pain - Past Surgical History Past Surgical History: Yes Neuro Surgical History: No Pertinent History Cardiac: No Pertinent History Respiratory: No Pertinent History Gastrointestinal: No Pertinent History Genitourinary: No Pertinent History Musculoskeletal: Orthopedic Surgery Female Surgical History: Section Other Surgical History: LEFT WRIST SURGERY - Social History Smoking Status: Current every day smoker How long have you smoked: 5 years Exposure to second hand smoke: Yes Drug Use: none Patient Lives Alone: No Significant Family History: heart disease - Female History Hx Last Menstrual Period: JAN 04 Hx Now: Yes Expected Date of Delivery: 10/11/17 - Nursing Vital Signs Nursing Vital Signs: Initial Vital Signs Temperature 98.5 F 04/30/17 10:50 Pulse Rate 102 H 04/30/17 10:50 Respiratory Rate 16 04/30/17 10:50 Blood Pressure 138/82 04/30/17 10:50 O2 Sat by Pulse Oximetry 95 04/30/17 10:50 Pain Scale Pain Intensity 1 - Physical Exam General Appearance: no apparent distress, alert Eye Exam: PERRL/EOMI, eyes nml inspection Ears, Nose, Throat Exam: normal ENT inspection, TMs normal, pharynx normal, moist mucous membranes Neck Exam: normal inspection, non-tender, supple, full range of motion Respiratory Exam: normal breath sounds, lungs clear, No respiratory distress Cardiovascular Exam: regular rate/rhythm, normal heart sounds, normal peripheral pulses Gastrointestinal/Abdomen Exam: soft, normal bowel sounds, No tenderness, No mass Back Exam: normal inspection, normal range of motion, No CVA tenderness, No vertebral tenderness Extremity Exam: normal inspection, normal range of motion, pelvis stable Neurologic Exam: alert, oriented x 3, cooperative, normal mood/affect, nml cerebellar function, nml station & gait, sensation nml, No motor deficits Skin Exam: normal color, warm, dry, No rash Lymphatic Exam: No adenopathy SpO2: 95 Oxygen Delivery: Room Air - Course Nursing assessment & vital signs reviewed: Yes EKG Interpreted by Me: RATE (78), Sinus Rhythm, NORMAL AXIS, NORMAL INTERVALS, NORMAL QRS - CT Exams Head CT Interpretation: Negative, Tele-radiologist Report, No/Intracranial Hemorrhag Ordered Tests: Active Orders 24 hr Category Date Time Status Clean Catch Urine Specimen STAT Care 04/30/17 11:23 Active EKG-ER Only STAT Care 04/30/17 11:23 Active IV Insertion STAT Care 04/30/17 11:23 Active HEAD WITHOUT CONTRAST [CT] Stat Exams 04/30/17 11:51 Completed CBC W DIFF Stat Lab 04/30/17 11:32 Completed CMP Stat Lab 04/30/17 11:32 Completed UA W/ MICROSCOPIC Stat Lab 04/30/17 Completed Urine Triage Profile Stat Lab 04/30/17 12:14 Completed Medication Summary Generic Name Dose Route Start Last Admin Trade Name Freq PRN Reason Stop Dose Admin Acetaminophen 1,000 mg 04/30/17 11:26 04/30/17 11:41 Tylenol Extra Strength 500 Mg PO 05/30/17 11:25 1,000 mg Q4H PRN PRN Administration HEADACHE Discontinued Medications Generic Name Dose Route Start Last Admin Trade Name Freq PRN Reason Stop Dose Admin Sodium Chloride 1,000 mls @ 999 mls/hr 04/30/17 11:23 04/30/17 11:41 Sodium Chloride 0.9% 1000 Ml IV 04/30/17 12:23 999 mls/hr .Q1H1M STA Administration Sodium Chloride Confirm 04/30/17 11:40 Sodium Chloride 0.9% 1000 Ml Administered 04/30/17 11:41 Dose 1,000 mls @ ud .ROUTE .STK-MED ONE Ondansetron HCl 4 mg 04/30/17 11:26 04/30/17 11:41 Zofran 4 Mg/2 Ml Vial IV 04/30/17 11:27 4 mg STAT ONE Administration Ondansetron HCl Confirm 04/30/17 11:39 Zofran 4 Mg/2 Ml Vial Administered 04/30/17 11:40 Dose 4 mg .ROUTE .STK-MED ONE Lab/Rad Data: Laboratory Result Diagrams 04/30/17 11:32 04/30/17 11:32 Laboratory Results 04/30/17 04/30/17 04/30/17 Range/Units Unknown 12:14 11:32 WBC (4.0-10.5) K/mm3 RBC (4.1-5.4) M/mm3 Hgb (12.0-16.0) gm/dl Hct (35-47) % MCV (78-100) fl MCH (26-32) pg MCHC (32-36) g/dl RDW (11.5-14.0) % Plt Count (150-450) K/mm3 MPV (6-9.5) fl Gran % (36.0-66.0) % Lymphocytes % (24.0-44.0) % Monocytes % (0.0-12.0) % Eosinophils % (0.00-5.0) % Basophils % (0.0-0.4) % Basophils # (0-0.4) Sodium 134 L (136-145) mEq/L Potassium 3.6 (3.5-5.1) mEq/L Chloride 103 (98-107) mEq/L Carbon Dioxide 21.5 (21-32) mEq/L Anion Gap 13.2 (5-15) MEQ/L BUN 6 L (9-20) mg/dL Creatinine 0.65 (0.55-1.30) mg/dl Estimated GFR > 60 ML/MIN Glucose 101 (70-110) MG/DL Calcium 9.1 (8.5-10.1) mg/dL Total Bilirubin 0.20 (0.2-1.0) mg/dL AST 20 (15-37) U/L ALT 16 (12-78) U/L Alkaline Phosphatase 75 (46-116) U/L Serum Total Protein 7.0 (6.4-8.2) gm/dL Albumin 2.9 L (3.4-5.0) g/dL Ur Collection Type VOID Urine Color YELLOW (YELLOW) Urine Appearance HAZY (CLEAR) Urine pH 6.0 (5-6) Ur Specific [place] 1.010 (1.005-1.025) Urine Protein NEGATIVE (Negative) Urine Ketones NEGATIVE (NEGATIVE) Urine Blood NEGATIVE (0-5) Ash/ul Urine Nitrite NEGATIVE (NEGATIVE) Urine Bilirubin NEGATIVE (NEGATIVE) Urine Urobilinogen NORMAL (0-1) mg/dL Ur Leukocyte Esterase TRACE (NEGATIVE) Urine Microscopic RBC 0-2 (0-2) /HPF Urine Microscopic WBC 0-2 (0-5) /HPF Ur Epithelial Cells PACKED (FEW) /HPF Amorphous Crystals MODERATE (NEGATIVE) /HPF Urine Bacteria FEW (NEGATIVE) /HPF Urine Mucus SLIGHT (NEGATIVE) /HPF Urine Culture Reflexed NO (NO) Urine Glucose NEGATIVE (NEGATIVE) mg/dL Urine Opiates Level NEG. (NEGATIVE) Ur Methadone NEG. (NEGATIVE) Urine Barbiturates NEG. (NEGATIVE) Ur Phencyclidine (PCP) NEG. (NEGATIVE) Urine Amphetamine NEG. (NEGATIVE) U Benzodiazepine Level NEG. (NEGATIVE) Urine Cocaine NEG. (NEGATIVE) Urine Marijuana (THC) NEG. (NEGATIVE) Specimen Received 04/30/2017 1320 04/30/17 Range/Units 11:32 WBC 9.1 (4.0-10.5) K/mm3 RBC 4.39 (4.1-5.4) M/mm3 Hgb 11.8 L (12.0-16.0) gm/dl Hct 36.6 (35-47) % MCV 83.4 (78-100) fl MCH 26.8 (26-32) pg MCHC 32.2 (32-36) g/dl RDW 14.2 H (11.5-14.0) % Plt Count 278 (150-450) K/mm3 MPV 10.4 H (6-9.5) fl Gran % 62.1 (36.0-66.0) % Lymphocytes % 27.1 (24.0-44.0) % Monocytes % 6.4 (0.0-12.0) % Eosinophils % 4.1 (0.00-5.0) % Basophils % 0.3 (0.0-0.4) % Basophils # 0.03 (0-0.4) Sodium (136-145) mEq/L Potassium (3.5-5.1) mEq/L Chloride (98-107) mEq/L Carbon Dioxide (21-32) mEq/L Anion Gap (5-15) MEQ/L BUN (9-20) mg/dL Creatinine (0.55-1.30) mg/dl Estimated GFR ML/MIN Glucose (70-110) MG/DL Calcium (8.5-10.1) mg/dL Total Bilirubin (0.2-1.0) mg/dL AST (15-37) U/L ALT (12-78) U/L Alkaline Phosphatase (46-116) U/L Serum Total Protein (6.4-8.2) gm/dL Albumin (3.4-5.0) g/dL Ur Collection Type Urine Color (YELLOW) Urine Appearance (CLEAR) Urine pH (5-6) Ur Specific [place] (1.005-1.025) Urine Protein (Negative) Urine Ketones (NEGATIVE) Urine Blood (0-5) Ash/ul Urine Nitrite (NEGATIVE) Urine Bilirubin (NEGATIVE) Urine Urobilinogen (0-1) mg/dL Ur Leukocyte Esterase (NEGATIVE) Urine Microscopic RBC (0-2) /HPF Urine Microscopic WBC (0-5) /HPF Ur Epithelial Cells (FEW) /HPF Amorphous Crystals (NEGATIVE) /HPF Urine Bacteria (NEGATIVE) /HPF Urine Mucus (NEGATIVE) /HPF Urine Culture Reflexed (NO) Urine Glucose (NEGATIVE) mg/dL Urine Opiates Level (NEGATIVE) Ur Methadone (NEGATIVE) Urine Barbiturates (NEGATIVE) Ur Phencyclidine (PCP) (NEGATIVE) Urine Amphetamine (NEGATIVE) U Benzodiazepine Level (NEGATIVE) Urine Cocaine (NEGATIVE) Urine Marijuana (THC) (NEGATIVE) Specimen Received - Progress Progress: improved - Departure Time of Disposition: 13:55 Departure Disposition: Home Clinical Impression: Syncopal episodes, Abdominal pain Condition: Stable Critical Care Time: No Referrals: DOCTOR,NO FAMILY [Primary Care Provider] - Instructions: Syncope (Fainting), Acute Abdomen (Belly Pain), Adult (DC) Additional Instructions: Rx: Zofran. Drink plenty of clear liquids. May use Tylenol for fever/pain. Return for worse dizziness, weak abdominal pain, fever or any problems. Prescriptions: Ondansetron [Zofran Odt] 4 mg PO Q6-8HPRN PRN #10 tab.rapdis PRN Reason: Nausea/Vomiting
[2017-04-30] MEDS ORDERED: Sodium Chloride 0.9% 1000 ML 1,000 ML IV STA (11:23)
[2017-04-30] MEDS ORDERED: TYLENOL EXTRA STRENGTH 500 MG PO PRN (11:26)
[2017-04-30] MEDS ORDERED: Zofran 4 MG/2 ML VIAL IV ONE (11:26)
[2017-04-30] MEDS ORDERED: Zofran 4 MG/2 ML VIAL ONE (11:39)
[2017-04-30] MEDS ORDERED: TYLENOL EXTRA STRENGTH 500 MG ONE (11:40)
[2017-04-30] MEDS ORDERED: Sodium Chloride 0.9% 1000 ML 1,000 ML ONE (11:40)
[2017-04-30 11:59] LABS: BASOPHIL % 0.3 % (0.0-0.4); Basophil (Absolute #) 0.03 (0-0.4); Eosinophil % 4.1 % (0.00-5.0); Eosinophil (Absolute #) 0.37 (0-0.5); Granulocyte Absolute (ANC) 5.65 (1.4-6.9); Granulocytes % 62.1 % (36.0-66.0); Hematocrit 36.6 % (35-47); Hemoglobin 11.8 gm/dl (12.0-16.0); Lymphocyte (Absolute #) 2.46 (1.0-4.6); Lymphocytes % 27.1 % (24.0-44.0); Mean Cell Volume 83.4 fl (78-100); Mean Corpuscular Hgb Concent. 32.2 g/dl (32-36); Mean Platelet Volume 10.4 fl (6-9.5); Monocyte (Absolute #) 0.58 (0.0-1.3); Monocytes % 6.4 % (0.0-12.0); Platelet Count 278 K/mm3 (150-450); Red Blood Count 4.39 M/mm3 (4.1-5.4); Red Cell Distribution Width 14.2 % (11.5-14.0); White Blood Count 9.1 K/mm3 (4.0-10.5)
[2017-04-30 12:05] LABS: Mean Corpuscular Hemoglobin 26.8 pg (26-32)
[2017-04-30 12:14] LABS: ALBUMIN 2.9 g/dL (3.4-5.0); ALKALINE PHOSPHATASE 75 U/L (46-116); ANION GAP 13.2 MEQ/L (5-15); BLOOD UREA NITROGEN 6 mg/dL (9-20); CHLORIDE 103 mEq/L (98-107); Calcium 9.1 mg/dL (8.5-10.1); Carbon Dioxide 21.5 mEq/L (21-32); Creatinine 1 0.65 mg/dl (0.55-1.30); EST GLOMERULAR FILTRATION RATE > 60 ML/MIN; Glucose 101 MG/DL (70-110); Potassium 3.6 mEq/L (3.5-5.1); SGOT/AST 20 U/L (15-37); SGPT/ALT 16 U/L (12-78); SODIUM 134 mEq/L (136-145)
--- NOTE | 2017-04-30 12:16 | XRAY ---
Indication: Syncope. Left frontal headache. Nausea and vomiting. 16 weeks . Multiple contiguous axial images obtained through the head without contrast. Comparison: None Normal appearing brain parenchyma, ventricles, and bony calvarium. Mild mucosal thickening of both ethmoid sinuses and mild left maxillary sinus fluid leveling. Mastoid air cells clear. Impression: Normal CT head without contrast exam. Incidental paranasal sinus disease. CT DI 70.87
[2017-04-30 12:26] LABS: Amphetamine,Urine NEG. (NEGATIVE); Barbiturate,Urine NEG. (NEGATIVE); Benzodiazepine,Urine NEG. (NEGATIVE); Cocaine,Urine NEG. (NEGATIVE); Methadone,Urine NEG. (NEGATIVE); Opiate,Urine NEG. (NEGATIVE); PCP,Urine NEG. (NEGATIVE); THC,Urine NEG. (NEGATIVE)
[2017-04-30 12:42] VITALS: O2SAT 95
[2017-04-30 13:36] LABS: Appearance HAZY (CLEAR); Bacteria FEW /HPF (NEGATIVE); Bilirubin NEGATIVE (NEGATIVE); Blood NEGATIVE Ery/ul (0-5); Epithelial Cells PACKED /HPF (FEW); Glucose NEGATIVE (NEGATIVE); Ketones NEGATIVE (NEGATIVE); Leukocyte Esterase TRACE (NEGATIVE); Mucus SLIGHT /HPF (NEGATIVE); Nitrite NEGATIVE (NEGATIVE); Protein,Urine Dip NEGATIVE (Negative); Urobilinogen NORMAL mg/dL (0-1); WBC 0-2 /HPF (0-5)
[2017-04-30 13:37] LABS: Amourphous Crystal MODERATE /HPF (NEGATIVE)
[2017-04-30 14:00] VITALS: BP 121/66; PULSE 88
== END 2017-04-30 14:13 | disposition home or self-care (01) ==
LOC: ED 10:37
DX: R55 Syncope and collapse (principal); R10.9 Unspecified abdominal pain; R51 Headache; R05 Cough; Z33.1 Pregnant state, incidental
CPT/HCPCS: 36000; 36415; 70450; 80053; 80307; 81000; 85025; 93005; 96360; 96374; 99284; J2405; A9270-GY

== ENCOUNTER 2018-04-20 14:40 | Emergency (ER) | payer OTHER ==
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
[2018-04-20] MEDS ORDERED: Rocephin 1000 MG INJ IM ONE (15:57)
[2018-04-20] MEDS ORDERED: Rocephin 1000 MG INJ ONE (16:02)
[2018-04-20] MEDS ORDERED: XYLOCAINE 1% HCL 20 ML MDV ONE (16:03)
--- NOTE | 2018-04-20 16:06 | XRAY ---
Indication: Cough and congestion. Comparison: None PA/lateral chest demonstrates right middle lobe infiltrate. Remaining heart, lungs, and bony thorax normal.
[2018-04-20 16:30] VITALS: BP 103/78; PULSE 97; O2SAT 95
== END 2018-04-20 16:30 | disposition home or self-care (01) ==
LOC: ED 14:40
DX: J18.9 Pneumonia, unspecified organism (principal)
CPT/HCPCS: 71046; 96372; 99284; J0696

== ENCOUNTER 2018-12-15 21:42 | Emergency (ER) | payer OTHER ==
[2018-12-16] MEDS ORDERED: TORAdol 30 mg Injection IM ONE (00:01)
[2018-12-16] MEDS ORDERED: TORAdol 30 mg Injection ONE (00:05)
[2018-12-16 00:31] VITALS: BP 118/74; PULSE 73; O2SAT 100
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
== END 2018-12-16 01:35 | disposition home or self-care (01) ==
LOC: ED 21:42
DX: R51 Headache (principal); M25.522 Pain in left elbow; M25.519 Pain in unspecified shoulder; S50.312A Abrasion of left elbow, initial encounter; M54.9 Dorsalgia, unspecified; Y04.0XXA Assault by unarmed brawl or fight, initial encounter; F41.8 Other specified anxiety disorders
CPT/HCPCS: 70450; 72072; 73030; 73080; 73090; 96372; 99284; J1885

== ENCOUNTER 2019-05-28 16:14 | Emergency (ER) | payer OTHER ==
--- NOTE | 2019-05-28 16:24 | ERPHSYRPT ---
- History of Present Illness Time Seen by Provider: 05/28/19 16:24 Source: patient Exam Limitations: no limitations Physician History: This is a 23-year-old female who has a history of polysubstance abuse and anxiety disorder as well as recurrent urinary tract infections. Is on Suboxone. She smokes cigarettes daily. Patient presents with 2-day history of dysuria and urinary frequency. She states she is urinating every 5 minutes. Patient does state that she drinks red bull energy drinks 2-3 times a day. She says she has not had any red bull today. Seen at an outpatient urgent care clinic yesterday on May 23, 2019 for the same issue. Viewed the patient's chart from yesterday's urgent care clinic visit. That note states that the patient has urinary frequency only and does not mention any painful urination. Patient underwent a complete blood count, a complete metabolic panel and urinalysis. No significant abnormalities present. Timing/Duration: day(s) (2) Activites at Onset: none Quality: burning Onset Location: urethral Pain Radiation: none Severity of Pain-Max: mild Severity of Pain-Current: mild Sexual intercourse history: non-contributory Associated Symptoms: urinary frequency (every 5 minutes) Allergies/Adverse Reactions: No Known Drug Allergies Allergy (Verified 05/28/19 16:50) Home Medications: Buprenorphine HCl/Naloxone HCl [Suboxone 2 mg-0.5 mg Tablet] 1 ea TID 04/30/17 [ History] Hx Tetanus, Diphtheria Vaccination/Date Given: No (unsure) Hx Influenza Vaccination/Date Given: No Hx Pneumococcal Vaccination/Date Given: No - Review of Systems Constitutional: No Symptoms Eyes: No Symptoms Ears, Nose, & Throat: No Symptoms Respiratory: No Symptoms Cardiac: No Symptoms Abdominal/Gastrointestinal: No Symptoms Genitourinary Symptoms: Dysuria, Frequency Musculoskeletal: No Symptoms Skin: No Symptoms Neurological: No Symptoms Psychological: No Symptoms Endocrine: No Symptoms Hematologic/Lymphatic: No Symptoms Immunological/Allergic: No Symptoms All Other Systems: Reviewed and Negative - Past Medical History Pertinent Past Medical History: Yes Neurological History: No Pertinent History ENT History: No Pertinent History Cardiac History: No Pertinent History Respiratory History: No Pertinent History Endocrine Medical History: No Pertinent History Musculoskeletal History: No Pertinent History GI Medical History: No Pertinent History History: Other Psycho-Social History: Anxiety Female Reproductive Disorders: No Pertinent History Other Medical History: chronic pain, 6 mos ago was placed on vent after having a baby - Past Surgical History Past Surgical History: Yes Neuro Surgical History: No Pertinent History Cardiac: No Pertinent History Respiratory: No Pertinent History Gastrointestinal: No Pertinent History Genitourinary: No Pertinent History Musculoskeletal: Orthopedic Surgery Female Surgical History: Section, Tubal Ligation Other Surgical History: LEFT WRIST SURGERY - Social History Smoking Status: Current every day smoker How long have you smoked: 10 years Exposure to second hand smoke: Yes Drug Use: none Patient Lives Alone: No Significant Family History: heart disease - Nursing Vital Signs Nursing Vital Signs: Initial Vital Signs Temperature 98 F 05/28/19 16:32 Pulse Rate 83 05/28/19 16:32 Respiratory Rate 18 05/28/19 16:32 Blood Pressure 138/86 05/28/19 16:32 O2 Sat by Pulse Oximetry 100 05/28/19 16:32 Pain Scale Pain Intensity 4 - Physical Exam General Appearance: no apparent distress, alert, anxiety Eye Exam: PERRL/EOMI, eyes nml inspection Ears, Nose, Throat Exam: normal ENT inspection, moist mucous membranes Neck Exam: normal inspection, non-tender, supple, full range of motion Respiratory Exam: normal breath sounds, lungs clear, airway intact, No chest tenderness, No respiratory distress Cardiovascular Exam: regular rate/rhythm, normal heart sounds, normal peripheral pulses Gastrointestinal/Abdomen Exam: soft, normal bowel sounds, No tenderness Pelvic Exam: not done Rectal Exam: not done Back Exam: normal inspection, normal range of motion, No CVA tenderness, No vertebral tenderness Extremity Exam: normal inspection, normal range of motion, pelvis stable Neurologic Exam: alert, oriented x 3, cooperative, alpine guide II-XII nml as tested Skin Exam: normal color, warm, dry Lymphatic Exam: No adenopathy SpO2 Interpretation: normal O2 Delivery: Room Air - Course Nursing assessment & vital signs reviewed: Yes Ordered Tests: Active Orders 24 hr Category Date Time Status CULTURE,URINE Stat Lab 05/28/19 17:30 Received UA W/RFX UR CULTURE Stat Lab 05/28/19 17:30 Completed Lab/Rad Data: Laboratory Results 05/28/19 Range/Units 17:30 Urine Color YELLOW (YELLOW) Urine Appearance SLIGHTLY CLOUDY (CLEAR) Urine pH 5.0 (5-6) Ur Specific Ideal 1.032 (1.005-1.025) Urine Protein 100 (Negative) Urine Ketones TRACE (NEGATIVE) Urine Blood NEGATIVE (0-5) Ash/ul Urine Nitrite NEGATIVE (NEGATIVE) Urine Bilirubin NEGATIVE (NEGATIVE) Urine Urobilinogen NEGATIVE (0-1) mg/dL Ur Leukocyte Esterase NEGATIVE (NEGATIVE) Urine WBC (Auto) 11-15 (0-5) /HPF Urine RBC (Auto) 6-10 (0-2) /HPF U Epithel Cells (Auto) RARE (FEW) /HPF Urine Bacteria (Auto) NONE (NEGATIVE) /HPF Urine Mucus (Auto) SLIGHT (NEGATIVE) /HPF Urine Culture Reflexed YES (NO) Urine Glucose NEGATIVE (NEGATIVE) mg/dL - Progress Progress: unchanged Air Movement: good Progress Note: 05/28/19 17:25 The differential diagnosis includes urinary tract infection, urinary frequency secondary to caffeine intake, very frequency secondary to diabetes. Medical decision: The patient and I discussed the plan for her in the emergency room. We have opted to not repeat her blood work since it was normal less than 24 hours ago. We will send her urinalysis for evaluation. If she has a urinary tract infection we will treat her with an antibiotic and Pyridium. If she does not have a urinary tract infection we will give her a prescription for Pyridium. Patient is then to follow-up with her primary care physician on Friday for further evaluation including evaluation for diabetes and for possible referral to a urologist. Over the next 3 days, the patient is to stop consuming energy drinks and caffeinated products. 05/28/19 17:54 Given patient's symptoms and her history of recurrent urinary tract infections, and the findings of 11-15 white blood cells in her urine, we have opted to treat her urinary tract infection with antibiotics and to place her additionally on Pyridium. Patient agrees with this plan Blood Culture(s) Obtained: No Antibiotics given: No Counseled pt/family regarding: lab results, diagnosis, need for follow-up - Departure Departure Disposition: Home Clinical Impression: Dysuria, Urinary frequency, Sterile pyuria Condition: Stable Critical Care Time: No Additional Instructions: Do not drink any energy drinks or caffeinated drinks over the next 72 hours. Call your primary care doctor on Friday to arrange an appointment to manage your symptoms including possible diabetes work-up and for possible urology referral. Prescriptions: Phenazopyridine HCl 200 mg [Pyridium 200 mg] 200 mg PO TID #6 tablet Smz/Tmp Ds Tablet [Bactrim Ds Tablet] 1 udtab PO BID #14 tablet
[2019-05-28 16:50] VITALS: O2SAT 100
[2019-05-28 17:28] VITALS: PULSE 74
[2019-05-28 17:48] LABS: Appearance SLIGHTLY CLOUDY (CLEAR); Bilirubin NEGATIVE (NEGATIVE); Blood NEGATIVE Ery/ul (0-5); Epithelial Cells RARE /HPF (FEW); Glucose NEGATIVE (NEGATIVE); Ketones TRACE (NEGATIVE); Leukocyte Esterase NEGATIVE (NEGATIVE); Mucus SLIGHT /HPF (NEGATIVE); Nitrite NEGATIVE (NEGATIVE); Protein,Urine Dip 100 (Negative); Specific Gravity 1.032 (1.005-1.025); Urobilinogen NEGATIVE mg/dL (0-1)
[2019-05-28 18:10] VITALS: BP 114/66
== END 2019-05-28 18:09 | disposition home or self-care (01) ==
LOC: ED 16:14
DX: R30.0 Dysuria (principal); R35.0 Frequency of micturition; R82.81 Pyuria
CPT/HCPCS: 81001; 87086; 99283

== ENCOUNTER 2021-02-23 16:52 | Emergency (ER) | payer OTHER ==
[2012-01-28 22:19] VITALS: BP 113/72
--- NOTE | 2021-02-23 18:04 | ERPHSYRPT ---
- History of Present Illness Historian: patient Exam Limitations: no limitations Patient Subjective Stated Complaint: constipation for approx 2 weeks Triage Nursing Assessment: Pt brought self to the ER, vitals wnl, rates pain in her rectum as 4/10, states that the only pain is in her rectum and she finds it hard to breath, abdomen is soft and nontender, bowel sounds heard in all 4 quadrants, skin n/w/d, pulses normal, passing gas Physician History: 25 yo wf w lack of BM x 2 wks. Pt has mild abdominal pain but denies N/V/D/melena/hematochezia/dysuria/hematuria/fever/narcotic use. Timing/Duration: other (2 wks) Activities at Onset: none Quality: cramping Abdominal Pain Onset Location: generalized abdomen Severity of Pain-Max: moderate Severity of Pain-Current: mild Modifying Factors: Improves With: nothing Associated Symptoms: denies symptoms, loss of appetite, nausea Previous symptoms: no prior history Allergies/Adverse Reactions: No Known Drug Allergies Allergy (Verified 02/23/21 17:53) Hx Tetanus, Diphtheria Vaccination/Date Given: No (unsure) Hx Influenza Vaccination/Date Given: No Hx Pneumococcal Vaccination/Date Given: No Travel Risk - International Travel Have you traveled outside of the country in past 3 weeks: No - Coronavirus Screening Are you exhibiting any of the following symptoms?: No Close contact with a COVID-19 positive Pt in past 14-21 Days: No - Vaccine Status Have you recieved a Covid-19 vaccination: No - Review of Systems Constitutional: No Symptoms Eyes: No Symptoms Ears, Nose, & Throat: No Symptoms Respiratory: No Symptoms Cardiac: Orthopnea Abdominal/Gastrointestinal: No Symptoms, Abdominal Pain, Nausea Genitourinary Symptoms: No Symptoms Musculoskeletal: No Symptoms Skin: No Symptoms Neurological: No Symptoms Psychological: No Symptoms Endocrine: No Symptoms Hematologic/Lymphatic: No Symptoms Immunological/Allergic: No Symptoms - Past Medical History Pertinent Past Medical History: Yes Neurological History: No Pertinent History ENT History: No Pertinent History Cardiac History: No Pertinent History Respiratory History: No Pertinent History Endocrine Medical History: No Pertinent History Musculoskeletal History: No Pertinent History GI Medical History: No Pertinent History History: Other Psycho-Social History: Anxiety Female Reproductive Disorders: No Pertinent History Other Medical History: chronic pain, 6 mos ago was placed on vent after having a baby - Past Surgical History Past Surgical History: Yes Neuro Surgical History: No Pertinent History Cardiac: No Pertinent History Respiratory: No Pertinent History Gastrointestinal: No Pertinent History Genitourinary: No Pertinent History Musculoskeletal: Orthopedic Surgery Female Surgical History: Section, Tubal Ligation Other Surgical History: LEFT WRIST SURGERY - Social History Smoking Status: Current every day smoker How long have you smoked: 10 years Exposure to second hand smoke: Yes Drug Use: none Patient Lives Alone: No Significant Family History: heart disease - Female History Hx Now: No (tubal) - Nursing Vital Signs Nursing Vital Signs: Initial Vital Signs Temperature 98.2 F 02/23/21 17:43 Pulse Rate 83 02/23/21 17:43 Blood Pressure 115/73 02/23/21 17:43 O2 Sat by Pulse Oximetry 99 02/23/21 17:43 Pain Scale Pain Intensity 4 WNL - Physical Exam General Appearance: no apparent distress Eye Exam: PERRL/EOMI, eyes nml inspection Ears, Nose, Throat Exam: normal ENT inspection, TMs normal, pharynx normal, moist mucous membranes Neck Exam: normal inspection, non-tender, supple, full range of motion, No meningismus, No mass, No Brudzinski, No Kernig's Respiratory Exam: normal breath sounds, lungs clear, airway intact, No respiratory distress Cardiovascular Exam: regular rate/rhythm, normal heart sounds, normal peripheral pulses, No murmur Gastrointestinal/Abdomen Exam: soft, normal bowel sounds, No tenderness Back Exam: normal inspection, normal range of motion, No CVA tenderness, No vertebral tenderness Extremity Exam: normal inspection, normal range of motion Neurologic Exam: alert, oriented x 3, cooperative, clinical laboratory medical director II-XII nml as tested, normal mood/affect, nml cerebellar function, nml station & gait, sensation nml Skin Exam: normal color, warm, dry, No rash Lymphatic Exam: No adenopathy SpO2 Interpretation: normal SpO2: 99 O2 Delivery: Room Air - Course Nursing assessment & vital signs reviewed: Yes - CT Exams Abdomen/Pelvis CT Interpretation: Tele-radiologist Report (Proctitis/Constipation) Ordered Tests: Active Orders 24 hr Category Date Time Status ABDOMEN AND PELVIS W/0 CONTRAS [CT] Stat Exams 02/23/21 18:00 Completed Medication Summary Discontinued Medications Generic Name Dose Route Start Last Admin Trade Name Freq PRN Reason Stop Dose Admin Ceftriaxone Sodium 1,000 mg 02/23/21 19:50 02/23/21 20:04 Ceftriaxone Sodium 1000 Mg Inj Vial IM 02/23/21 19:51 1,000 mg STAT ONE Administration Ceftriaxone Sodium Confirm 02/23/21 19:59 Ceftriaxone Sodium 1000 Mg Inj Vial Administered 02/23/21 20:00 Dose 1,000 mg .ROUTE .STK-MED ONE Lidocaine HCl Confirm 02/23/21 19:59 Lidocaine Hcl 1% 20 Ml Mdv 20 Ml Ml Administered 02/23/21 20:00 Dose 3 ml .ROUTE .STK-MED ONE - Progress Progress Note: 02/23/21 19:51 1gm IM Rocephin Counseled pt/family regarding: diagnosis, need for follow-up, rad results - Departure Departure Disposition: Home Clinical Impression: Proctitis, Constipation Condition: Stable Critical Care Time: No Referrals: MELISSA MOREIRA [facility] [employer] [Primary Care Provider] - Follow up/PCP as directed Instructions: Proctitis, Constipation, Adult (DC) Additional Instructions: Increase fluid intake Lactulose twice a day as needed for constipation Cipro twice a day for 1 week Flagyl twice a day for 1 week Follow up with your family MD on Friday Return to ER for increasing pain or temperature greater than 100.5 Forms: Work/School Release Form Prescriptions: Ciprofloxacin HCl [Cipro] 500 mg PO BID #14 tablet Metronidazole 500 mg [Flagyl 500 MG] 500 mg PO BID #14 tablet Lactulose [Lactulose 20 gm/30Ml Ud Cup] 20 gm PO BID PRN #300 ml PRN Reason: Constipation
[2021-02-23] MEDS ORDERED: Rocephin 1000 MG INJ IM ONE (19:50)
[2021-02-23] MEDS ORDERED: XYLOCAINE 1% HCL 20 ML MDV ONE (19:59)
[2021-02-23] MEDS ORDERED: Rocephin 1000 MG INJ ONE (19:59)
--- NOTE | 2021-02-23 21:57 | XRAY ---
Indication: Constipation 2 weeks. Pain. History kidney stones. Multiple contiguous axial images obtained through the abdomen and pelvis without contrast. Comparison: July 23, 2016. Lung bases are clear. Heart not enlarged. Noncontrasted stomach and bowel loops appear nonobstructed. Normal appendix. Again mild diffuse scattered colonic debris throughout. Rectum demonstrates new mild circumferential wall thickening with moderate perirectal stranding concerning for proctitis. No walled off fluid collection or free air. Remaining liver, gallbladder, pancreas, spleen, adrenal glands, kidneys, ureters, bladder, uterus, and aorta appear unremarkable for noncontrast exam. Osseous structures intact. Impression: 1. New CT findings favoring proctitis. 2. Again incidental diffuse fecal stasis. Comment: Preliminary interpretation made by C. No critical discrepancy.
== END 2021-02-23 20:15 | disposition home or self-care (01) ==
LOC: ED 16:52
DX: K62.89 Other specified diseases of anus and rectum (principal); K59.00 Constipation, unspecified
CPT/HCPCS: 74176; 96372; 99283; J0696